=== PATIENT | female | born 1985 | race Caucasian/White ===

== ENCOUNTER 2021-07-20 19:08 | Emergency (ER) | payer BC ==
[~2021-07-20] VITALS: Ht 175.3 cm; Wt 64.4 kg
[2021-07-20] MEDS ORDERED: TETRACAINE HCL 0.5% OPHT DROP 2 ML BOTTLE ONE (19:25)
[2021-07-20] MEDS ORDERED: FLUORESCEIN SODIUM 1 MG STRIP ONE (19:26)
--- NOTE | 2021-07-20 19:44 | NUR ---
Patient discharged to home in stable condition. Written and verbal after care instructions given. Patient verbalizes understanding of instructions. Stressed follow up or return to ER for worsening s/s.
[2021-07-20 19:45] VITALS: BP 122/77
== END 2021-07-20 19:47 | disposition home or self-care (01) ==
LOC: ER 19:12
DX: H18.822 Corneal disorder due to contact lens, left eye (principal)
CPT/HCPCS: A4663